=== PATIENT | male | born 1945 | race Caucasian/White ===

== ENCOUNTER → 2018-02-13 | Outpatient (CLI) | payer MEDICARE, BC ==
[~2018-02-13] MED LIST: ASPIRIN E.C. 8181 MG PO; B-12 100 MCG PO; CARTIA XT180 MG PO; CIPRO 250MG TA250 MG PO; FLOMAX 0.40.4 MG/CAP PO; MASON NATURAL2000 IU PO; MULTIVITAMIN1 CTB PO; PERCOCET 5/321 UDTAB PO; PHENERGAN 25 TA25 MG PO; VITAMIN C500 MG PO; arthritis med; blood pressure
[2018-02-13 12:18] LABS: HIV 1/2 Antibodies Non-Reactive; HIV-1p24 Antigen Non-Reactive
== END ==
LOC: COL.LAB 11:20
PROVIDERS: Orthopaedic Surgery
DX: Z01.812 Encounter for preprocedural laboratory examination (principal); M16.11 Unilateral primary osteoarthritis, right hip

== ENCOUNTER → 2019-03-07 | Outpatient (CLI) | payer MEDICARE, BC ==
[~2019-03-07] MED LIST changes: +ASPI325T6 PO; +GOOD NEIGH1200 MG/15 PO; +NORCO 325 MG-7.1 TAB; +ROXICODONE 55 MG/TAB PO; +SENOKOT8.6 MG PO; +TYLENOL 500MG500 MG PO
== END ==
LOC: COL.VAS 12:12
DX: R60.0 Localized edema (principal)

== ENCOUNTER → 2020-08-21 | Outpatient (CLI) | payer MEDICARE, BC ==
[~2020-08-21] VITALS: Ht 195.6 cm; Wt 115.0 kg
[~2020-08-21] MED LIST changes: +ASPIRIN 81M81 MG/TA2 PO; +FISH OIL PO; +MULTIPLE VITAMI1 TA5 PO; +OCUVITE1 TA1 PO; +VITAMINC1000TA PO
[2020-08-21 08:55] VITALS: BP 168/85; PULSE 74
[2020-08-21 09:50] VITALS: BP 152/81; PULSE 69
== END ==
LOC: COL.RAD 08:24
DX: M51.26 Other intervertebral disc displacement, lumbar region (principal); M48.061 Spinal stenosis, lumbar region without neurogenic claudication
CPT/HCPCS: J3301

== ENCOUNTER → 2021-03-09 | Outpatient (CLI) | payer MEDICARE, BC ==
[~2021-03-09] VITALS: Ht 195.6 cm; Wt 115.5 kg
[~2021-03-09] MED LIST changes: +B-121000 MCG PO; +FISH OIL1000 MG PO; +INDERAL 10MG10 MG
[2021-03-09 13:41] VITALS: BP 167/82; PULSE 82
[2021-03-09 14:20] VITALS: BP 164/82; PULSE 82
== END ==
LOC: COL.RAD 13:00
DX: M51.26 Other intervertebral disc displacement, lumbar region (principal)
CPT/HCPCS: J3301

== ENCOUNTER 2023-12-15 10:27 | Inpatient (IN) | payer MEDICARE, BC ==
[~2023-12-15] VITALS: Ht 195.6 cm; Wt 110.0 kg
[~2023-12-15 10:27] MED LIST changes: -INDERAL 10MG10 MG; +INDERAL 20MG20 MG PO
[2023-12-15] MEDS ORDERED: Furosemide 40 MG/4 ML VIAL IV ONE (11:32)
[2023-12-15 11:34] LABS: BASO % 0.7 % (0.0-2.0); EOS # 0.3 K/mm3 (0.0-0.7); EOS % 6.1 % (0.0-4.0); GRAN # 2.7 K/mm3 (1.4-6.5); GRAN % 66.3 % (42.2-75.2); HEMATOCRIT 40.5 % (42.0-52.0); HEMOGLOBIN 13.6 g/dl (13.5-18.0); LYMPH # 0.7 K/mm3 (1.2-3.4); LYMPH % 16.9 % (20.0-51.0); MEAN CELL VOLUME 103 fl (80.0-100.0); MEAN CORPUSCULAR HEMOGLOBIN 35 pg (27-31); MEAN CORPUSCULAR HGB CONC 34 g/dl (33.0-37.0); MEAN PLATELET VOLUME 10.7 fl (7.4-10.4); MONO # 0.4 K/mm3 (0.1-0.6); PLATELET COUNT 133 K/mm3 (130-400); RED BLOOD COUNT 3.93 M/mm3 (4.20-5.60); REDCELL DISTRIBUTION WIDTH-CV 12.6 % (11.5-14.5)
[2023-12-15 12:18] LABS: TROPONIN-I 0.01 ng/mL (0.00-0.033)
[2023-12-15 12:29] LABS: ALBUMIN 3.7 g/dL (3.4-4.8); BILIRUBIN,TOTAL 1.1 mg/dL (0.2-1.2); CALCIUM 9.8 mg/dL (8.4-10.2); CREATININE, serum 1.04 mg/dL (0.72-1.25); POTASSIUM 3.8 mEq/L (3.5-4.5)
--- NOTE | 2023-12-15 15:10 | NUR ---
PT ADMITTED FROM ED FOR SOB. PT IS AXOX3. PT IS ON 3L OXYMASK. BEDSIDE. PT ORIENTED TO ROOM AND FLOOR. PT WEANED TO 2L NC. PT DENIES CP OR SOB AT THIS TIME. VSS. ADMISSION COMPLETED. PT INSTRUCTED TO CALL WITH ALL NEEDS.
[2023-12-15 15:35] VITALS: BP 140/89; PULSE 104; TEMP 98.2
[2023-12-15] MEDS ORDERED: Ondansetron 4 MG/2 ML VIAL IV PRN (15:45)
[2023-12-15] MEDS ORDERED: Acetaminophen 500 MG TAB PO PRN (15:45)
[2023-12-15] MEDS ORDERED: Albuterol/Ipratropium 3 MG-0.5 MG/3 ML Neb Soln IH PRN (15:45)
--- NOTE | 2023-12-15 16:16 | NUR ---
1550-CLARIFIED WITH REGARDING NO TELEMETRY ORDERS. STATED EKG ONLY AT THIS TIME.
[2023-12-15] MEDS ORDERED: COZAAR100 MG PO (16:56)
[2023-12-15] MEDS ORDERED: Losartan 50 MG TAB PO SCH (17:02)
[2023-12-15 17:03] VITALS: BP_SYST 140
[2023-12-15] MEDS ORDERED: Albuterol/Ipratropium 3 MG-0.5 MG/3 ML Neb Soln IH SCH (19:00)
--- NOTE | 2023-12-15 19:15 | NUR ---
PATIENT RESTING IN BED WITH TV ON WITH NO FAMILY PRESENT WITH NO ACUTE DISTRESS NOTED. PATIENT ON ROOM AIR. INT TO RIGHT HAND INTACT WITH NO COMPLICATIONS NOTED. URINAL EMPTIED OF 700 ML OF CLEAR YELLOW URINE. PATIENT DENEIS ANY NEEDS AT THIS TIME. PATIENT CARE ASSUMED FROM VICKIE. BED IN LOW POSITION WITH WHEELS LOCKED WITH RAILS UP X2 AND CALL LIGHT WITHIN REACH.
[2023-12-15 19:57] VITALS: BP 169/101; PULSE 116; TEMP 98.2
[2023-12-15] MEDS ORDERED: Cholecalciferol (Vit D3) 1000 Units TAB PO SCH (21:00)
[2023-12-15] MEDS ORDERED: Omega-3 Fatty Acid Esters (OTC) 1,000 MG CAP PO SCH (21:00)
[2023-12-15] MEDS ORDERED: Cyanocobalamin (Vit B-12) 1,000 MCG TAB PO SCH (21:00)
[2023-12-15] MEDS ORDERED: Ascorbic Acid 500 MG TAB PO SCH (21:00)
[2023-12-15] MEDS ORDERED: Furosemide 40 MG/4 ML VIAL IV SCH (21:00)
[2023-12-15 22:30] VITALS: BP_SYST 169
--- NOTE | 2023-12-15 22:30 | NUR ---
PATIENT SITTING UP IN BED WITH TV ON WITH NO FAMILY PRESENT WITH NO ACUTE DISTRESS NOTED. PATIENT ON 2 LITERS OF OXYGEN VIA NC. INT TO RIGHT HAND INTACT WITH NO COMPLICATIONS NOTED. ASSESSMENT AND MEDICATION ADMINISTRATION COMPLETED AT THIS TIME. PATIENT REQUESTED CUP TO SPIT IN AND WAS GIVEN. PATIENT DENIES ANY OTHER NEEDS. BED IN LOW POSITION WITH WHEELS LOCKED WITH RAILS UP X2 AND CALL LIGHT WITHIN REACH.
[2023-12-15 23:22] VITALS: BP 153/77; PULSE 113; TEMP 98.8
[2023-12-16] VITALS (9 sets, daily range): BP systolic 127–153; BP diastolic 55–83; PULSE 96–117; TEMP 97.9–98.6
[2023-12-16 05:59] LABS: BASO % 0.2 % (0.0-2.0); EOS # 0.4 K/mm3 (0.0-0.7); EOS % 8.2 % (0.0-4.0); GRAN # 2.8 K/mm3 (1.4-6.5); GRAN % 64.5 % (42.2-75.2); HEMATOCRIT 39.3 % (42.0-52.0); HEMOGLOBIN 13.9 g/dl (13.5-18.0); LYMPH # 0.7 K/mm3 (1.2-3.4); LYMPH % 17.1 % (20.0-51.0); MEAN CORPUSCULAR HEMOGLOBIN 35 pg (27-31); MEAN CORPUSCULAR HGB CONC 35 g/dl (33.0-37.0); MEAN PLATELET VOLUME 10.6 fl (7.4-10.4); MONO # 0.4 K/mm3 (0.1-0.6); MONO % 9.8 % (1.7-9.3); PLATELET COUNT 126 K/mm3 (130-400); RED BLOOD COUNT 4.03 M/mm3 (4.20-5.60); REDCELL DISTRIBUTION WIDTH-CV 12.5 % (11.5-14.5)
[2023-12-16 06:15] LABS: CALCIUM 9.6 mg/dL (8.4-10.2); CREATININE, serum 1.15 mg/dL (0.72-1.25); MAGNESIUM 1.6 mg/dL (1.6-2.6); POTASSIUM 4.2 mEq/L (3.5-4.5)
[2023-12-16 06:21] LABS: MEAN CELL VOLUME 98 fl (80.0-100.0)
--- NOTE | 2023-12-16 07:00 | NUR ---
PATIENT ASLEEP RESTING IN BED. PATIENTS RESPIRATIONS WNL, HE APPEASRS TO BE IN NO ACUTE DISTRESS. CALL LIGHT WITHIN REACH.
[2023-12-16] MEDS ORDERED: Multivitamin TAB PO SCH (09:00)
[2023-12-16] MEDS ORDERED: Apixaban 5 MG TABLET PO SCH (11:45)
--- NOTE | 2023-12-16 15:53 | NUR ---
Remedy Developer met with patient to complete initial intake. Patient lives in [place] with his , Tricia (ph#[phone]) and sees Dr. Duke for primary care. Patient gets his medications from [facility] and does not use any DME, although he stated he has assistive devices like a walker if it's needed. Patient does not normally use oxygen but is currently on two liters. Patient is independent with ADLS including driving. Patient stated his , Tricia is DPOA-HC. Patient plans to return home at time of discharge. Discharge Plan: Home
--- NOTE | 2023-12-16 15:55 | NUR ---
PATIENT RETURNED FROM PACU ASLEEP/DROWSY, PATIENT AROUSES TO NAME. PEG TUBE IN PLACE, DRESSING CDI, DRAINAGE TUBE OPEN AND TO A DEPENDENT DRAINAGE BAG. PATIENTS VITALS STABLE. AT BEDSIDE, CALL LIGHT KATHYA SMITH.
[2023-12-17] VITALS (7 sets, daily range): BP systolic 99–142; BP diastolic 62–80; PULSE 93–103; TEMP 97.4–98
--- NOTE | 2023-12-17 06:02 | NUR ---
AT BEDTIME TURNED THE O2 TO .05 LITER TO START WEANING PROCESS. TOLERATED WELL SATURATION READING 92-94% AT THE HOUR DAYAMI, O2 TURNED OFF. PT SATURATION WENT TO 86-88. PUT PT BACK ON 1 LITER OF O2. OVERNIGHT PT DIURESED AND HAD NO NEW COMPLAINTS.CALL LIGHT WITHIN REACH.
[2023-12-17 06:14] LABS: BASO % 0.5 % (0.0-2.0); EOS # 0.4 K/mm3 (0.0-0.7); GRAN # 2.5 K/mm3 (1.4-6.5); GRAN % 59.6 % (42.2-75.2); HEMOGLOBIN 14.1 g/dl (13.5-18.0); LYMPH # 0.8 K/mm3 (1.2-3.4); LYMPH % 19.7 % (20.0-51.0); MEAN CELL VOLUME 97 fl (80.0-100.0); MEAN CORPUSCULAR HEMOGLOBIN 35 pg (27-31); MEAN CORPUSCULAR HGB CONC 36 g/dl (33.0-37.0); MEAN PLATELET VOLUME 10.4 fl (7.4-10.4); MONO # 0.4 K/mm3 (0.1-0.6); PLATELET COUNT 142 K/mm3 (130-400); RED BLOOD COUNT 4.04 M/mm3 (4.20-5.60); REDCELL DISTRIBUTION WIDTH-CV 12.6 % (11.5-14.5)
[2023-12-17 06:25] LABS: CALCIUM 9.5 mg/dL (8.4-10.2); CREATININE, serum 1.12 mg/dL (0.72-1.25); MAGNESIUM 1.8 mg/dL (1.6-2.6); POTASSIUM 3.7 mEq/L (3.5-4.5)
--- NOTE | 2023-12-17 08:44 | NUR ---
YESENIANET AWAKE AND ALERT, SITTING UP IN BED. PATIENTS CALL LIGHT WTIHIN REACH. PATIENT PLACED ON MICHAEL AIR, WITH O2 AND PLETH MONITORING. PATIENT DID WELL WITH NO NOTED SOB AND MAINTAINED AN O2 SATURAITON >92% OVER TEN MINUTES. RT CALLED FOR EX OX
--- NOTE | 2023-12-17 12:00 | NUR ---
PATINETS IV AND TELE REMOVED FOR DISCHARGE. PATIENT WAS INDEPENDENT TO DRESS FOR DISCHARGE
[2023-12-17] MEDS ORDERED: ELIQUIS 5MG PO (12:06)
[2023-12-17] MEDS ORDERED: VERAPAMIL240 MG/TAB PO (12:08)
[2023-12-17] MEDS ORDERED: LASIX 40MG TABL40 MG PO (12:09)
[2023-12-17] MEDS ORDERED: K-DUR20 MEQ PO (12:09)
--- NOTE | 2023-12-17 12:32 | NUR ---
Data: Patient acccepted Sheet Metal Foreman visit offered during Sheet Metal Foreman rounds. Patient hopes to go home today. Patient's son is graduating this evening. Assessment: Patient wants to be present for his son. Plan of Care: Sheet Metal Foreman provided supportive listening and prayer. Patient thanked Sheet Metal Foreman for the visit. Chaplains will remain available as needed/requested while Patient is admitted to this hospital.
== END 2023-12-17 13:00 | disposition home or self-care (01) | DRG 291 ==
LOC: COL.ER 10:27 → MEDICAL 14:38 → COL.ER 14:38 → MEDICAL 12-17 13:00
PROVIDERS: Emergency Medicine; Internal Medicine; ADMIT Internal Medicine
DX: I11.0 Hypertensive heart disease with heart failure (principal); J96.01 Acute respiratory failure with hypoxia; I31.9 Disease of pericardium, unspecified; I50.9 Heart failure, unspecified; I48.0 Paroxysmal atrial fibrillation; M19.90 Unspecified osteoarthritis, unspecified site; R53.81 Other malaise; Z79.82 Long term (current) use of aspirin; Z79.899 Other long term (current) drug therapy; Z90.89 Acquired absence of other organs; Z87.01 Personal history of pneumonia (recurrent)
CPT/HCPCS: J1650; J1940; J3475

== ENCOUNTER 2024-04-27 10:06 | Observation (INO) | payer MEDICARE ==
[~2024-04-27] VITALS: Ht 195.6 cm; Wt 99.2 kg
[2024-04-27] VITALS (7 sets, daily range): BP systolic 132–154; BP diastolic 60–93; PULSE 57–72; TEMP 97.3–98
[~2024-04-27 10:06] MED LIST changes: +COZAAR100 MG PO; +ELIQUIS 5MG PO; +K-DUR20 MEQ PO; +LASIX 40MG TABL40 MG PO; +VERAPAMIL240 MG/TAB PO
[2024-04-27 10:33] LABS: BASO % 0.6 % (0.0-2.0); EOS # 0.6 K/mm3 (0.0-0.7); EOS % 9.7 % (0.0-4.0); GRAN # 4.3 K/mm3 (1.4-6.5); GRAN % 67.3 % (42.2-75.2); HEMOGLOBIN 10.6 g/dl (13.5-18.0); LYMPH # 0.9 K/mm3 (1.2-3.4); LYMPH % 14.4 % (20.0-51.0); MEAN CELL VOLUME 101 fl (80.0-100.0); MEAN CORPUSCULAR HEMOGLOBIN 32 pg (27-31); MEAN CORPUSCULAR HGB CONC 32 g/dl (33.0-37.0); MEAN PLATELET VOLUME 10.9 fl (7.4-10.4); MONO # 0.5 K/mm3 (0.1-0.6); MONO % 7.7 % (1.7-9.3); PLATELET COUNT 171 K/mm3 (130-400); RED BLOOD COUNT 3.32 M/mm3 (4.20-5.60); REDCELL DISTRIBUTION WIDTH-CV 12.7 % (11.5-14.5)
[2024-04-27 10:37] LABS: HEMATOCRIT 33.5 % (42.0-52.0)
[2024-04-27 11:01] LABS: CALCIUM 9.2 mg/dL (8.4-10.2); CREATININE, serum 1.08 mg/dL (0.72-1.25); POTASSIUM 4.5 mEq/L (3.5-4.5); TOTAL PROTEIN 6.9 g/dl (6.2-8.1)
[2024-04-27 11:07] LABS: C-REACTIVE PROTEIN 0.66 mg/dL (0.00-0.50); MAGNESIUM 1.9 mg/dL (1.6-2.6)
[2024-04-27 11:20] LABS: TROPONIN-I 0.012 ng/mL (0.00-0.033); TSH w REFLEX 2.727 uIU/mL (0.350-4.940)
[2024-04-27] MEDS ORDERED: Furosemide 40 MG/4 ML VIAL IV ONE (12:15)
[2024-04-27] MEDS ORDERED: BETAPACE 120MG120 MG PO (12:33)
[2024-04-27] MEDS ORDERED: Ondansetron 4 MG/2 ML VIAL IV PRN (13:15)
[2024-04-27] MEDS ORDERED: Acetaminophen 325 MG TAB PO PRN (13:15)
--- NOTE | 2024-04-27 13:25 | NUR ---
Pt arrived to medical floor from ED by wheelchair. Report received from LIZETTE Carranza. Admission assessment and intake completed. VSS with O2 in place at 1L NC. Pt is A&O x4. +2 BLE edema noted. Pt ambulates in room independently with no complications. Oriented pt to room, call light, and bathroom. INT to Rt AC patent with no swelling, redness, or drainage. Home medications, allergies, and pharmacy reviewed with pt. Pt has personal glasses at bedside. Pt has no request at this time. Call light within reach.
--- NOTE | 2024-04-27 20:50 | NUR ---
Patient resting in bed. Denies any pain or needs at this time. Assessment complete. IV in right AC flushes easily without complications. Call light and personal items in reach. Bed in low position.
[2024-04-27] MEDS ORDERED: Apixaban 5 MG TABLET PO SCH (21:00)
[2024-04-27] MEDS ORDERED: Ascorbic Acid 500 MG TAB PO SCH (21:00)
[2024-04-27] MEDS ORDERED: Cyanocobalamin (Vit B-12) 1,000 MCG TAB PO SCH (21:00)
[2024-04-28 01:00] VITALS: BP_SYST 153
[2024-04-28 04:00] VITALS: BP 154/78; PULSE 66; TEMP 97.8
[2024-04-28 05:15] VITALS: BP_SYST 154
[2024-04-28 07:02] VITALS: BP 163/80; PULSE 71; TEMP 98
--- NOTE | 2024-04-28 08:00 | NUR ---
Patient standing in the room, A&Ox4. VSS. IV CDI. Denies pain and discomfort. Call light within reach
[2024-04-28 08:01] LABS: BASO % 0.4 % (0.0-2.0); EOS # 0.4 K/mm3 (0.0-0.7); EOS % 9.2 % (0.0-4.0); GRAN # 3.1 K/mm3 (1.4-6.5); GRAN % 65.1 % (42.2-75.2); LYMPH # 0.8 K/mm3 (1.2-3.4); LYMPH % 16.1 % (20.0-51.0); MEAN CELL VOLUME 99 fl (80.0-100.0); MEAN CORPUSCULAR HGB CONC 32 g/dl (33.0-37.0); MEAN PLATELET VOLUME 11.1 fl (7.4-10.4); MONO # 0.4 K/mm3 (0.1-0.6); PLATELET COUNT 146 K/mm3 (130-400); RED BLOOD COUNT 3.09 M/mm3 (4.20-5.60); REDCELL DISTRIBUTION WIDTH-CV 12.8 % (11.5-14.5)
[2024-04-28 08:07] LABS: HEMATOCRIT 30.6 % (42.0-52.0); HEMOGLOBIN 9.8 g/dl (13.5-18.0); MEAN CORPUSCULAR HEMOGLOBIN 32 pg (27-31)
[2024-04-28 08:23] LABS: ALBUMIN 3.4 g/dL (3.4-4.8); BILIRUBIN,TOTAL 0.7 mg/dL (0.2-1.2); CREATININE, serum 1.13 mg/dL (0.72-1.25); MAGNESIUM 1.7 mg/dL (1.6-2.6); POTASSIUM 4.2 mEq/L (3.5-4.5); TOTAL PROTEIN 6.4 g/dl (6.2-8.1)
[2024-04-28 08:50] VITALS: BP_SYST 163
[2024-04-28] MEDS ORDERED: Multivitamin TAB PO SCH (09:00)
[2024-04-28] MEDS ORDERED: Losartan 50 MG TAB PO SCH (09:00)
[2024-04-28] MEDS ORDERED: LASIX 40MG TABL40 MG PO (09:23)
[2024-04-28] MEDS ORDERED: Furosemide 40 MG/4 ML VIAL IV SCH ×2 (09:30→15:00)
--- NOTE | 2024-04-28 09:47 | NUR ---
NURSE SITTER met with pt to discuss discharge planning and complete consult. Pt resting comfortably in recliner speaking with on the phone. Confirmed PCP is Thomas Duke and uses [facility] for pharmacy. Pt has DPOA but does not have copy with him. States that DPOA is Tricia, spouse, . NOK decision maker is still Tricia even without copy. Pt stated he has given a copy to [employer] and [employer]. Pt reports no DME or assistive devices at home. Pt reports no recent falls and no concerns returning home. Pt reports feeling safe returning home. As NURSE SITTER was leaving pt was being evaluated for home O2. NURSE SITTER followed up with physician and pt does not qualify for home O2. NURSE SITTER provided number and encouraged to call with any questions or concerns. Voiced understanding. D/C: Home w\ spouse
--- NOTE | 2024-04-28 11:08 | NUR ---
Discharge paperwork reviewed with the patient. Patient verbalized an understanding to follow doctors orders. IV removed, tip intact. Gauze and coban applied. Patient getting dressed and calling for ride home. No further needs expressed. Call light within reach
--- NOTE | 2024-04-28 11:25 | NUR ---
Patient ambulated independently to ER entrance and awaiting vehicle. No further needs expressed
--- NOTE | 2024-04-28 12:03 | NUR ---
Data: Patient accepted spiritual care visit offered during Be[employer] rounds. Patient hoped to discharge today. Assessment: Patient desired prayer. Plan of Care: Patient has discharged since spiritual care visit.
== END 2024-04-28 11:25 | disposition home or self-care (01) ==
LOC: COL.ER 10:06 → MEDICAL 12:20
PROVIDERS: Emergency Medicine; Physician Assistant; ADMIT Internal Medicine
DX: I11.0 Hypertensive heart disease with heart failure (principal); I50.31 Acute diastolic (congestive) heart failure; J96.01 Acute respiratory failure with hypoxia; I48.0 Paroxysmal atrial fibrillation; D53.9 Nutritional anemia, unspecified; Z79.01 Long term (current) use of anticoagulants; Z79.899 Other long term (current) drug therapy
CPT/HCPCS: G0378; J1940